=== PATIENT | female | born 1985 | race African-American/Black ===

== ENCOUNTER 2018-03-23 08:58 | Emergency (ER) | payer MEDICAID, SELFPAY | END 2018-03-23 09:31 | disposition home or self-care (01) | LOC: ERS 08:58 | DX: M25.562 Pain in left knee (principal); R20.0 Anesthesia of skin | CPT/HCPCS: 99283 ==

== ENCOUNTER 2019-07-07 11:54 | Emergency (ER) | payer BC, SELFPAY ==
--- NOTE | 2019-07-07 14:09 | RAD ---
CHEST TWO VIEWS: HISTORY: Pain with deep breath. COMPARISON: 06/07/2013 FINDINGS: Heart size is normal. Lungs are clear. No confluent pneumonia, overt edema or pleural effusion. IMPRESSION: No acute intrathoracic disease. POS: [facility]
[2019-07-07 14:11] LABS: Bacteria/HPF None Seen HPF (None Seen); Bilirubin Negative (Negative); Blood, Urine 1+ (Negative); Clarity Clear (Clear); Glucose, Urine (Dipstick) Normal (Negative); Leukocyte Negative Leu/uL (Negative); Nitrite Negative (Negative); Pregnancy Test - Urine (BHCG) Negative (Negative); Pregu Control Background? CLEAR/WHITE (CLR/WHITE); Pregu Control Bar Appear? YES (CONTROL BAR); Protein, Urine (Dipstick) Negative (Neg-Trace); Squamous Epithelial None Seen HPF (0-3); Urobilinogen Normal mg/dL (Less than 2); WBC/HPF 0-3 HPF (0-3)
[2019-07-07] MEDS ORDERED: Ketorolac Tromethamine 30 MG/ML VIAL ONE (15:12)
[2019-07-07 15:31] LABS: #Basophils 0.1 thou/uL (0.0-0.2); #Eosinphils 0.3 thou/uL (0.0-0.7); #Lymphocytes 3.5 thou/uL (1.20-3.40); #Monocytes 0.9 thou/uL (0.11-0.59); #Neutrophils 6.6 thou/uL (1.40-6.50); %Basophils 1.1 % (0.0-1.0); %Eosinophils 2.9 % (0.0-10.0); %Lymphocytes 30.3 % (21.0-51.0); %Monocytes 7.9 % (0.0-10.0); %Neutrophils 57.9 % (42.0-75.0); Hemoglobin 13.6 g/dL (12.0-16.0); Mean Corpuscular HGB CONC 32.7 g/dL (32.0-36.0); Mean Corpuscular Hemoglobin 27.6 pg (27.0-31.0); Mean Corpuscular Volume 84.4 fL (78.0-98.0); Platelet Count 217 thou/uL (130-400); RBC Distribution Width 12.4 % (11.5-14.5); Red Blood Cell (RBC) Count 4.91 mill/uL (4.20-5.40); White Blood Cell (WBC) Count 11.5 thou/uL (4.8-10.8)
--- NOTE | 2019-07-07 15:43 | CT ---
CT ABDOMEN AND PELVIS WITHOUT CONTRAST USING STONE PROTOCOL: HISTORY: Back pain. Upper abdominal pain. FINDINGS: Absence of oral and IV contrast reduce the sensitivity of the exam, particularly for evaluation of so lid organs involved. The lung bases are clear. The patient is post hysterectomy. No free air or free fluid is seen in the abdomen or pelvis. A uterus is present. A normal appearing appendix is noted. There is a 5 mm calculus in the right kidney. No calculi are seen in the left kidney or in either ure ter or in the urinary bladder. No hydroureteronephrosis is noted on either side. No acute osseous abn ormality is seen. IMPRESSION: A 5 mm nonobstructing right renal calculus. POS: [facility]
[2019-07-07 15:56] LABS: ALT (SGPT) 11 U/L (8-55); AST (SGOT) 15 U/L (5-34); Albumin 4.5 g/dL (3.5-5.0); Alkaline Phosphatase 103 U/L (40-110); Anion Gap 14 mmol/L (10-20); BUN (Urea Nitrogen) 7 mg/dL (7.0-18.7); Bilirubin, Total 0.4 mg/dL (0.2-1.2); Calc. Creatinine Clearance 0 mL/min (70-130); Calcium 9.4 mg/dL (7.8-10.44); Carbon Dioxide 23 mmol/L (22-29); Chloride 103 mmol/L (98-107); Estimated GFR-MDRD Greater than 90; Globulin 4.3 g/dL (2.4-3.5); Glucose 82 mg/dL (70-105); Lipase 18 U/L (8-78); Potassium 3.6 mmol/L (3.5-5.1); Protein, Total 8.8 g/dL (6.0-8.3); Sodium 136 mmol/L (136-145)
--- NOTE | 2019-07-10 13:56 | EKG ---
Test Reason : Blood Pressure : / mmHG Vent. Rate : 088 BPM Atrial Rate : 088 BPM P-R Int : 158 ms QRS Dur : 072 ms QT Int : 358 ms P-R-T Axes : 065 -01 010 degrees QTc Int : 433 ms Normal sinus rhythm Minimal voltage criteria for LVH, may be normal variant Borderline ECG Confirmed by [place] SAINI, LAWRENCE Moe ([id number]), story editor SABRA FARMER ([id number]) on 07/10/2019 1:56:12 PM Referred By: Confirmed By:LAWRENCE CASIANO MD
== END 2019-07-07 17:25 | disposition home or self-care (01) ==
LOC: ERS 11:54
DX: R10.10 Upper abdominal pain, unspecified (principal); R31.9 Hematuria, unspecified; R10.811 Right upper quadrant abdominal tenderness; M54.9 Dorsalgia, unspecified; X50.1XXA Overexertion from prolonged static or awkward postures, initial encounter
CPT/HCPCS: 71046; 74176; 80053; 81003; 81015; 81025; 83690; 85025; 93005; 96361; 96374; J1885

== ENCOUNTER 2020-11-16 07:46 | Emergency (ER) | payer BC ==
[2020-11-16 08:25] LABS: #Eosinphils 0.2 thou/uL (0.0-0.7); #Monocytes 0.6 thou/uL (0.11-0.59); #Neutrophils 3.7 thou/uL (1.40-6.50); %Basophils 0.3 % (0.0-1.0); %Eosinophils 3.7 % (0.0-10.0); %Lymphocytes 30.5 % (21.0-51.0); %Monocytes 9.1 % (0.0-10.0); %Neutrophils 56.5 % (42.0-75.0); Mean Corpuscular HGB CONC 32.5 g/dL (32.0-36.0); Mean Corpuscular Hemoglobin 26.9 pg (27.0-31.0); Mean Corpuscular Volume 82.9 fL (78.0-98.0); Mean Platelet Volume 9.4 fL (7.4-10.4); Platelet Count 187 thou/uL (130-400); RBC Distribution Width 15.2 % (11.5-14.5); Red Blood Cell (RBC) Count 4.46 mill/uL (4.20-5.40); White Blood Cell (WBC) Count 6.6 thou/uL (4.8-10.8)
[2020-11-16 08:41] LABS: ALT (SGPT) 15 U/L (8-55); AST (SGOT) 18 U/L (5-34); Albumin 3.9 g/dL (3.5-5.0); Alkaline Phosphatase 81 U/L (40-110); Anion Gap 12 mmol/L (10-20); BUN (Urea Nitrogen) 14 mg/dL (7.0-18.7); Bilirubin, Total 0.2 mg/dL (0.2-1.2); Calc. Creatinine Clearance 0 mL/min (70-130); Calcium 8.5 mg/dL (7.8-10.44); Carbon Dioxide 25 mmol/L (22-29); Chloride 107 mmol/L (98-107); Globulin 3.5 g/dL (2.4-3.5); Glucose 98 mg/dL (70-105); Potassium 4.3 mmol/L (3.5-5.1); Protein, Total 7.4 g/dL (6.0-8.3); Sodium 140 mmol/L (136-145)
[2020-11-16] MEDS ORDERED: Meclizine HCl 25 MG TAB ONE (09:48)
[2020-11-16 09:49] LABS: BHCG - Serum Negative (NEGATIVE); Pregs Control Background? CLEAR/WHITE (CLR/WHITE); Pregs Control Bar Appear? YES (CONTROL BAR)
== END 2020-11-16 09:47 | disposition home or self-care (01) ==
LOC: ERS 07:46
DX: R42 Dizziness and giddiness (principal)
CPT/HCPCS: 36415; 80053; 84484; 84703; 85025; 93005